=== PATIENT | female | born 1960 | race Caucasian/White ===

== ENCOUNTER 2018-07-08 09:36 | Outpatient (REF) | payer BC, SELFPAY ==
[2018-07-08 19:36] LABS: Glucose 89 mg/dL (70-100)
[2018-07-08 20:12] LABS: Cholesterol 225 mg/dL (50-200); HDL Cholesterol 71 mg/dL (40-60); LDL CHOLESTEROL 141 mg/dL (<100); Triglyceride 83 mg/dL (30-150)
[2018-07-11 12:04] LABS: Hepatitis C Ab w Rflx HCV PCR Negative (NEGAT)
== END 2018-07-08 09:56 ==
LOC: NCHCN 09:36
PROVIDERS: PCP Internal Medicine; Visit Provider Nurse Practitioner Family
DX: Z00.00 Encounter for general adult medical examination without abnormal findings (principal); Z13.29 Encounter for screening for other suspected endocrine disorder; Z01.84 Encounter for antibody response examination; Z13.220 Encounter for screening for lipoid disorders; Z13.1 Encounter for screening for diabetes mellitus
CPT/HCPCS: 80061; 82947; 83721; 86803; 84443

== ENCOUNTER 2018-09-29 09:08 | Outpatient (REF) | payer BC, SELFPAY ==
--- NOTE | 2018-09-29 08:00 | PAPFT_PTH ---
PATIENT: Kat Ga LOC: [facility]#:[id number] AGE/SX: 58/F ROOM: RE09/29/[address]: Keila Bailey : 1960 BED: DIS: 09/29/2018 SPEC #: [id number] RECD: 09/30/18 13:06 STATUS: JOSR SINGH #: [id number] PAULO: 09/29/18 08:[address]: Keila Bailey DEPT: [facility] [place] Cytology RECD BY: Rita Barrios ENTERED: 09/30/18 13:06 SP TYPE: PAPFT OTHR DR: Josemanuel Cespedes Tissues: 1 - CX/ENDOCX FOR PAP SMEARS Procedures: PAP THIN PREP/[facility] Screening HPV DNA PROBE Comments: [id number]
== END 2018-09-29 09:28 ==
LOC: NCHCN 09:08
PROVIDERS: PCP Internal Medicine; Visit Provider Nurse Practitioner Family
DX: Z12.4 Encounter for screening for malignant neoplasm of cervix (principal); Z11.51 Encounter for screening for human papillomavirus (HPV); Z01.419 Encounter for gynecological examination (general) (routine) without abnormal findings
CPT/HCPCS: 88142; 87624

== ENCOUNTER 2022-06-25 09:36 | Outpatient (REF) | payer BC, SELFPAY ==
[2022-06-25 19:59] LABS: Calculated LDL 124 mg/dL (<100); Cholesterol 215 mg/dL (<200); Glucose 83 mg/dL (74-106); HDL Cholesterol 80 mg/dL (40-60); Triglyceride 55 mg/dL (<150)
== END 2022-06-25 09:37 | disposition home or self-care (01) ==
LOC: NCHCN 09:36
PROVIDERS: PCP Internal Medicine; Visit Provider Nurse Practitioner Family
DX: Z13.1 Encounter for screening for diabetes mellitus (principal); Z13.220 Encounter for screening for lipoid disorders
CPT/HCPCS: 80061; 82947

== ENCOUNTER 2023-07-08 17:20 | Outpatient (REF) | payer BC, SELFPAY ==
[2023-07-08 19:24] LABS: Calculated LDL 140 mg/dL (<100); Cholesterol 235 mg/dL (<200); Glucose 97 mg/dL (74-106); HDL Cholesterol 83 mg/dL (40-60); Triglyceride 64 mg/dL (<150)
== END 2023-07-08 17:21 | disposition home or self-care (01) ==
LOC: NCHCN 17:20
PROVIDERS: PCP Internal Medicine; Visit Provider Nurse Practitioner Family
DX: Z13.220 Encounter for screening for lipoid disorders (principal); Z13.1 Encounter for screening for diabetes mellitus
CPT/HCPCS: 80061; 82947

== ENCOUNTER 2024-04-07 13:47 | Outpatient (REF) | payer BC, SELFPAY | END 2024-04-07 13:48 | disposition home or self-care (01) | LOC: NCHCN 13:47 | PROVIDERS: PCP Internal Medicine; Visit Provider Physician Assistant | DX: N39.0 Urinary tract infection, site not specified (principal) | CPT/HCPCS: 87077; 87086; 87186 ==

== ENCOUNTER 2024-07-13 11:47 | Outpatient (REF) | payer BC, SELFPAY ==
[2024-07-13 20:03] LABS: ALT 21 U/L (14-59); AST 21 U/L (15-37); Albumin 4.1 g/dL (3.4-5.0); Alkaline Phosphatase 67 U/L (46-116); Anion Gap 6.7 mmol/L (3-11); BUN 12 mg/dL (7-18); Bilirubin, Total 0.46 mg/dL (0.2-1.0); CO2 30.3 mmol/L (21.0-32.0); CREATININE 0.8 mg/dL (0.55-1.02); Calcium 9.2 mg/dL (8.5-10.1); Calculated LDL 140 mg/dL (<100); Chloride 105 mmol/L (98-107); Cholesterol 236 mg/dL (<200); Estimated GFR 81.72 (mL/min/1.73m2); Glucose 106 mg/dL (74-106); HDL Cholesterol 81 mg/dL (40-60); Potassium 4.2 mmol/L (3.5-5.1); Sodium 142 mmol/L (136-145); Total Protein 7.9 g/dL (6.4-8.2); Triglyceride 75 mg/dL (<150)
== END 2024-07-13 11:48 | disposition home or self-care (01) ==
LOC: NCHCN 11:47
PROVIDERS: PCP Internal Medicine; Visit Provider Physician Assistant
DX: Z13.220 Encounter for screening for lipoid disorders (principal)
CPT/HCPCS: 80053; 80061

== ENCOUNTER 2025-07-17 16:19 | Outpatient (REF) | payer BC, SELFPAY ==
[2025-07-17 19:08] LABS: Glucose 115 mg/dL (74-106)
[2025-07-17 19:29] LABS: Cholesterol 252 mg/dL (<200); Triglyceride 90 mg/dL (<150)
[2025-07-18 04:39] LABS: Calculated LDL 166 mg/dL (<100); HDL Cholesterol 68 mg/dL (>or=50)
== END 2025-07-17 16:20 | disposition home or self-care (01) ==
LOC: NCHCN 16:19
PROVIDERS: PCP Internal Medicine; Visit Provider Physician Assistant
DX: Z13.1 Encounter for screening for diabetes mellitus (principal); Z13.220 Encounter for screening for lipoid disorders
CPT/HCPCS: 80061; 82947